=== PATIENT | male | born 2000 | race Asian ===

== ENCOUNTER 2022-01-02 01:24 | Emergency (ER) | payer OTHER ==
[~2022-01-02] VITALS: Ht 162.6 cm; Wt 49.9 kg
[2022-01-02 01:26] VITALS: BP 139/97
[2022-01-02] MEDS ORDERED: KETOROLAC TROMETH 60MG/2ML VIAL IM ONE (03:00)
[2022-01-02] MEDS ORDERED: IBUP100S11 GT (03:20)
== END 2022-01-02 04:58 | disposition home or self-care (01) ==
LOC: ER 01:24
DX: S80.12XA Contusion of left lower leg, initial encounter (principal); M25.572 Pain in left ankle and joints of left foot; M54.2 Cervicalgia; V43.52XA Car driver injured in collision with other type car in traffic accident, initial encounter; Y93.89 Activity, other specified; Y92.488 Other paved roadways as the place of occurrence of the external cause; Y99.8 Other external cause status
CPT/HCPCS: 72040; 73590; 73610; 73630; 96372; 99284; J1885

== ENCOUNTER 2022-06-14 11:43 | Emergency (ER) | payer OTHER ==
[~2022-06-14] VITALS: Ht 167.6 cm; Wt 50.0 kg
[~2022-06-14 11:43] MED LIST: IBUP100S11 GT
[2022-06-14 13:59] LABS: Basophils # (auto) 0 10 ^3/uL (0-0.2); Eosinophils # (auto) 0 10 ^3/uL (0-0.8); Hemoglobin 15.1 g/dL (13.5-17.5); Lymphocytes # (auto) 0.8 10 ^3/uL (0.4-5.4); Neutrophils # (auto) 6.2 10 ^3/uL (1.6-8.6)
[2022-06-14 14:01] LABS: Basophils % (auto) 0.1 % (0.0-2.0); Hematocrit 45.7 % (41.0-53.0); Lymphocytes % (auto) 10.6 % (10.0-50.0); Mean Corpuscular Hemoglobin 27.7 pg (28.0-32.0); Mean Corpuscular Hgb Conc. 33.1 g/dL (32.0-36.0); Mean Corpuscular Volume 83.5 fL (80.0-100.0); Monocytes # (auto) 0.4 10 ^3/uL (0-1.3); Monocytes % (auto) 5.9 % (0.0-12.0); Neutrophils % (auto) 83.4 % (37.0-80.0); Red Blood Cells 5.47 10^6/uL (4.5-5.90); White Blood Cell 7.5 10^3/uL (4.4-10.8)
[2022-06-14 14:22] LABS: Albumin 4.6 g/dL (3.4-5.0); Calcium 8.4 mg/dL (8.5-10.1); Potassium 3.9 mmol/L (3.5-5.1)
[2022-06-14 14:25] LABS: BUN/Creatinine Ratio 17.4; Bilirubin, Total 0.9 mg/dL (0.2-1.0); Total Protein 7.8 g/dL (6.4-8.2)
[2022-06-14 14:38] LABS: Urine Bacteria NONE SEEN /hpf (None Seen); Urine Blood Negative /uL (Negative); Urine Specific Gravity 1.015 (1.001-1.035); Urine WBC <1 /hpf (0 - 3)
[2022-06-14 17:00] VITALS: BP 111/61
== END 2022-06-14 18:10 | disposition home or self-care (01) ==
LOC: ER 11:43 → EDBD 11:43 → ER 18:10
DX: E16.2 Hypoglycemia, unspecified (principal); I95.9 Hypotension, unspecified; R00.1 Bradycardia, unspecified; R74.8 Abnormal levels of other serum enzymes; E86.1 Hypovolemia
CPT/HCPCS: 36415; 71046; 80053; 81001; 82962; 83735; 84443; 84484; 85025; 93005